=== PATIENT | male | born 1970 | race African-American/Black ===

== ENCOUNTER 2024-11-11 18:51 | Observation (INO) | payer OTHER, SELFPAY ==
--- NOTE | ~2024-11-11 | CT_ITS ---
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 CTA of the neck was performed with intravenous contrast. Automated exposure control and iterative reconstruction technique were employed. The dose-length product was 1 796.61 mGy-cm. Maximum intensity projection and volume rendered 3D-reconstructions were created by tino carmen technologist on a separate workstation. COMPARISON: CT 04/02/2019. FINDINGS: CT BRAIN: No acute large vessel infarct, intracranial hemorrhage, mass, or hydrocephalus. Partial opacification and aerated secretions in the right posterior ethmoid sinuses. CTA HEAD: No large vessel occlusion, aneurysm, high flow vascular malformation, nidus or extravasation. The rig ht intradural vertebral artery terminates in a cerebellar artery, a normal variant. Persistent origin of the right posterior cerebral artery, a normal variant. CTA NECK: Aortic arch and proximal great vessels: Normal arch anatomy. Atherosclerotic calcifications at the vi sualized aortic arch and proximal great vessels. Right common carotid, carotid bifurcation, and internal carotid artery: No plaque.There is 0% stenosi s of the proximal right internal carotid artery relative to normal distal artery lumen diameter (NASC ET criteria). Left common carotid, carotid bifurcation, and internal carotid artery: No plaque.There is 0% stenosis of the proximal left internal carotid artery relative to normal distal artery lumen diameter (NASCET criteria). Vertebral arteries: No significant plaque or stenosis. Left vertebral artery is dominant. Other findings: Degenerative changes in the cervical spine. IMPRESSION: No acute intracranial process. Minimal opacification and aerated secretions in the right posterior ethmoid cells, may reflect a comp onent of acute sinusitis in the appropriate clinical context. No large vessel intracranial occlusion, high-grade intracranial stenosis, or aneurysm. No carotid or vertebral artery occlusion, dissection, or significant stenosis. Reviewed, dictated and finalized at location K. IC AID ELIGIBILITY ASSISTANT IMPRESSION: No acute intracranial process. Minimal opacification and aerated secretions in the right posterior ethmoid alicja ls, may reflect a component of acute sinusitis in the appropriate clinical cont ext. No large vessel intracranial occlusion, high-grade intracranial stenosis, or an eurysm. No carotid or vertebral artery occlusion, dissection, or significant stenosis.
--- NOTE | ~2024-11-11 | XR_ITS ---
EXAMINATION: XR chest 1V portable Exam Date/Time: 11/11/2024 20:40 [place] [employer] HISTORY: pt c/o seeing red dots in his vision Comparison: 04/02/2019. RESULT: Lines, tubes, and devices: None. Lungs and pleura: Slight leftward rotation. No focal consolidation, pleural effusion, or pneumothora x. Cardiomediastinal silhouette: Stable. Other: No acute osseous or upper abdominal finding. IMPRESSION: No acute cardiopulmonary process. Reviewed, dictated and finalized at location K. TEE OF ESTATE
--- NOTE | ~2024-11-11 | MR_ITS ---
EXAMINATION: MR brain/brain stem wo/w con DATE: 11/12/2024 08:01 INDICATION: Vision changes superior. Superior quadrantanopia. TECHNIQUE: Magnetic resonance imaging (MRI) of the brain and brainstem was performed without and with 17 mL Multihance intravenous contrast. Sequences included sagittal and axial T1-weighted SE, axial d iffusion-weighted FS SE, axial 3D SWAN, axial T2-weighted FLAIR, and axial T2-weighted FSE. Postcontr ast axial and coronal T1-weighted SE was obtained. Apparent diffusion coefficient (ADC) maps were cre ated. COMPARISON: None. FINDINGS: There are no areas of restricted diffusion to suggest acute infarction. No intracranial hemorrhage or abnormal intracranial mass lesion. There are no intraparenchymal signal abnormalities seen on the ot her pulse sequences. The ventricles are symmetric and normal in size. There are no abnormal extra-axi al fluid collections. Flow voids are seen in the cerebral arteries on the T2-weighted sequences consi stent with their expected patency. Abnormal signal in the left lobe which on the flair signal has a V -shaped configuration converging on the optic disc suggesting retinal detachment. Mild mucosal thicke lisa in the bilateral ethmoid sinuses. There are no areas of abnormal enhancement on the post contras t images. IMPRESSION: 1. Normal brain. 2. Abnormal signal in the left lobe with configuration suggesting retinal detachment. Reviewed, dictated and finalized at location A. ROLLER ENGRAVER IMPRESSION: 1. Normal brain. 2. Abnormal signal in the left lobe with configuration suggesting retinal detac hment.
--- OUTSIDE RECORDS SUMMARY | 2024-11-11 18:53 | XMS_ITS | Continuity of Care Document ---
Author Organization [facility] Address [address] [place] [address] Rd [address] [place] [address] Phone Care Team Providers Care Pharmacy Salesperson Name Role Phone Davion PT,MPT,ATC, Zurdo Unavailable Unavai lable Procedures Procedure Date Free Assessment Advance Directives Directive Yes / No Effective Date File Name No Information Encounters Encounter Description Practice Location Reason(s) For Visit Diagnoses Date Provider Providers Copied on Encounter [facility], [address] [place], [place] [address], [place], [place], [id number], [place] tel:[phone] [place] No Information [address] [place]. Referring Provider: Physician Screen. Family History Family Member Type Diagnosis Age At Onset No Information Payers Payer name Insurance type Covered alliance party ID Authoriza tion(s) No Information Social History Type Description Quantity Date Captured Comments Sex Male Smoking Status No Information Chief Complaint And Reason For Visit No Information Reason For Referral Reason For Referral No Information History Of Present Illness Encounter Date Complaint History Of Prese nt Illness No Information Functional Status Date Functional Assessmen t No Information Instructions Date Instruction Additional Infor mation No Information Assessments Type Assessment Date No Information Patient Care Teams Name Effective Dates (start - stop) Status Members No Information
--- OUTSIDE RECORDS SUMMARY | 2024-11-11 18:53 | XMS_ITS | Patient Health Summary ---
Author Organization [facility] Address [address] [place] [address] Care Team Providers Care Chemistry Technologist Name Role Phone Unavailable Primary Care Provider Unavailabl e Note from [facility],non-owned Affiliates and Associated Physician Practices is amultiple site organization consisting of ambulatory clinics and hospital sitesin [place], [place], [place] and [place]. This disclosure is being madepursuant to the Care Everywhere program and may not contain all information available regarding this patient. Last updated 18.[facility] Allergies No known active allergies Medications * Be aware that medications may not be up to date on this document. Alwaysverify current medications with the patient. * METFORMIN HCL PO Take by mouth. Social History Tobacco Use Types Packs/Day Years Used Date Smoking Tobacco: Never Assessed Sex and Gender Information Value Date Recorded Sex Assigned at Not on file Gender Identity Not on file Sexual Orientation Not on file Procedures * IMAGING/RADIOLOGY/XRAY RESULTS ORDER(Performed 09/07/2011) Results * IMAGING/RADIOLOGY/XRAY RESULTS ORDER (09/07/2011) Anatomical Region Laterality Modality Other Kenneth Chacon MD IMAGING
--- OUTSIDE RECORDS SUMMARY | 2024-11-11 18:53 | XMS_ITS | Clinical Summary ---
Author Organization [facility] on Address [address] [address] Phone Care Team Providers Care Hat Brim Curler Name Role Phone Javier Hamilton, Kyung THOMPSON Primary Care Provi luiz Allergies No known active allergies Medications METFORMIN HCL (METFORMIN ORAL) Take by mouth. 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 Gender Identity Not on file Sexual Orientation Not on file Last Filed Vital Signs Vital Sign Reading Time Taken Comments Blood Pressure 151/92 01/04/2012 1:59 PM CDT Pulse 94 01/04/2012 1:59 PM CDT Temperature 36.8 C (98.3 F) 01/04/2012 1:59 PM CDT Respiratory Rate 20 01/04/2012 1:59 PM CDT Oxygen Saturation 99% 01/04/2012 1:59 PM CDT Inhaled Oxygen Concentration - - Weight 90.7 kg (200 lb) 01/04/2012 1:59 PM CDT Height 182.9 cm (6') 01/04/2012 1:59 PM CDT Body Mass Index 27.12 01/04/2012 1:59 PM CDT Plan of Treatment Health Maintenance Due Date Last Done Comments DTAP/TDAP/TD VACCINES (1 - Tdap) 1990 HEPATITIS B VACCINES (1 of 3 - 19+ 3-dose series) 1990 COLORECTAL SCREENING 2016 Colorectal Cancer Screening 2016 FIT-DNA Q 3 years 2016 FIT/FOBT Q 1 year 2016 Flex Sig/CT Colonography Q 5 years 2016 ZOSTER VACCINE (1 of 2) 2021 INFLUENZA VACCINE (#1) 2024 PNEUMOCOCCAL VACCINE 0-64 YEARS Aged Out No longer eligible based on patient's age to complete this topic Insurance Care Teams Hat Brim Curler Relationship Specialty Start Date End Date Kyung Herrera Sr., DO PCP - General Family Practice 01/04/12
--- OUTSIDE RECORDS SUMMARY | 2024-11-11 18:53 | XMS_ITS | Clinical Summary ---
Author Organization [facility] Address [address] [place] [id number] Care Team Providers Care Senior Net Software Developer Name Role Phone Jane Corona DO Primary Care Provider + Silas Vazquez MD Unavailable Fernandez Moody MD Unavailable [phone] Allergies No known active allergies Medications metFORMIN (GLUCOPHAGE) 1000 MG tablet Take 1 tablet (1,000 mg total) by mouth 2 (two) times daily with meals. Active atorvastatin (LIPITOR) 80 MG tablet Take 1 tablet (80 mg total) by mouth nightly at bedtime. 30 tablet 05/15/2024 Active Active Problems Problem Noted Date Diagnosed Date Slurred speech 05/13/2024 Social History Tobacco Use Types Packs/Day Years Used Date Smoking Tobacco: Never Smokeless Tobacco: Never Tobacco Cessation:Counseling Given: Not Answered [facility] Utilities Answer Date Recorded In the past 12 months has [employer], or water [employer] threatened to shut off services in your home? Yes 05/13/2024 Humiliation, Afraid, Rape, and Kick questionnair e Answer Date Recorded Within the last year, have y ou been afraid of your partner or ex-partner? No 05/13/2024 Within the last year, have y ou been humiliated or emotionally abused in other ways by your partner or ex-partner? No Within the last year, have y ou been kicked, hit, slapped, or otherwise physically hurt by your partner or ex-partner? No 05/13/2024 Within the last year, have y ou been raped or forced to have any kind of sexual activity by your partner or ex-partner? No 05/13/2024 Overall Financial Resource Strain (CARDIA) Answe r Date Recorded How hard is it for you to pa y for the very basics like food, housing, medical care, and heating? Not very hard 05/13/2024 Hunger Vital Sign Answer Date Recorded Within the past 12 months, y ou worried that your food would run out before you got the money to buy more. Never true 05/13/20 24 Within the past 12 months, t he food you bought just didn't last and you didn't have money to get more. Never true 05/13/2024 PRAPARE - Transportation Answer Date Re corded In the past 12 months, has l ack of transportation kept you from medical appointments or from getting medications? No 05/04 In the past 12 months, has l ack of transportation kept you from meetings, work, or from getting things needed for daily living? No 05/13/2024 Housing Stability Vital Sign Answer Steve e Recorded In the last 12 months, was t here a time when you were not able to pay the mortgage or rent on time? No 05/13/2024 In the past 12 months, how m any times have you moved where you were living? 0 05/13/2024 At any time in the past 12 m [facility], were you homeless or living in a half-way (including now)? No 05/13/2024 Sex and Gender Information Value Date Recorded Sex Assigned at Not on file Legal Sex Male 3:30 PM CDT Gender Identity Not on file Sexual Orientation Not on file Last Filed Vital Signs Vital Sign Reading Time Taken Comments Blood Pressure 169/98 05/15/2024 1:18 PM CDT Pulse 63 05/15/2024 1:18 PM CDT Temperature 36.8 C (98.2 F) 05/15/2024 1:18 PM CDT Respiratory Rate 16 05/15/2024 1:18 PM CDT Oxygen Saturation 100% 05/15/2024 1:18 PM CDT Inhaled Oxygen Concentration - - Weight 89.4 kg (197 lb 1.5 oz) 05/13/2024 4:20 P M CDT Height 177.8 cm (5' 10 ) 05/13/2024 4:20 PM CDT Body Mass Index 28.28 05/13/2024 4:20 PM CDT Plan of Treatment Health Maintenance Due Date Last Done Comments Colorectal Cancer Screening Colonoscopy (10 Years) 1971 Annual Physical 1974 Hepatitis C 1989 DTaP, Tdap and Td Vaccines ( 1 - Tdap) 1990 Hepatitis B Vaccines (1 of 3 - 19+ 3-dose series) 1990 Zoster Vaccines (1 of 2) 2021 COVID-19 Vaccine (4 - 2023-2 5 season) 2024 08/22/2022, 09/24/2021, 02/04/2021 Influenza Adult (#1) 2024 08/01/2022 Meningococcal B Vaccine Aged Out No l onger eligible based on patient's age to complete this topic Meningococcal Vaccine Aged Out No leopoldo alex eligible based on patient's age to complete this topic Pneumococcal Vaccine: Pediatrics (0 to 5 Years) and At-Risk Patients (6 to 64 Years) Aged Out No longer eligible b ased on patient's age to complete this topic RSV Immunizations Under 20 Months Aged Out No longer eligible b ased on patient's age to complete this topic Insurance GENERIC - COMMERCIAL Advance Directives * Full Code (Latest Code Status on File) Date Activated Date Inactivated Comments 05/13/2024 5:59 PM 05/15/2024 3:59 PM Care Teams Senior Net Software Developer Relationship Specialty [place] [address] [place] [address] PCP - General FAMILY PRACTICE 05/14/24 Silas Vazquez MD [facility] [address] [place] [address] Referring Physician VASCULAR SURGERY 05/15/24 05/15/25 Fernandez Moody MD [address] [facility] [address] [place] [address] Neuro-Ophthalmology 05/15/24 05/15/25
--- OUTSIDE RECORDS SUMMARY | 2024-11-11 18:53 | XMS_ITS | Continuity of Care Document ---
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 Name Role Phone Cj THOMPSON Jlwai Unavailable Unavailable Allergies, Adverse Reactions, Alerts Substance Reaction Status Criticality No Known Allergies Active No Inform ation Medications Medication Instructions Dosage Effective Dates (start - stop) Status Comments atorvastatin 80 mg tablet take 1 tablet by oral route every day 80 MG - Active amlodipine 5 mg tablet take 1 tablet by oral route every day 5 MG - Active clopidogrel 75 mg tablet take 1 tablet by oral route every day 75 MG - Active Januvia 25 mg tablet take 1 tablet by oral route every day 25 MG - Active METFORMIN HCL 1,000 MG TABLET TAKE 1 TABLET BY MOUTH EVERY DAY WITH MORNING AND EVENING MEAL - Active Farxiga 10 mg tablet take 1 tablet by oral route every day in the morning 10 MG - Active glipizide 10 mg tablet TAKE 1 TABLET BY MOUTH EVERY DAY BEFORE A MEAL - Active amlodipine 5 mg tablet take 1 tablet by oral route every day 5 MG - No Longer Active Procedures Procedure Date DSCHRG MED/CURRENT MED MERGE OFFICE [id number] BASIC METABOLIC PANEL(BMP) HEMOGLOBIN A1C HGA1C, GLYCO LDL-CHOLESTEROL, DIRECT ROUTINE VENIPUNCTURE OFFICE [id number] GENERAL HEALTH PANEL HEMOGLOBIN A1C HGA1C, GLYCO LIPID PANEL MICROALBUMIN, QN (URINE) CREATININE, (U-R) PSA, TOTAL ROUTINE VENIPUNCTURE PREVENTATIVE-EST: 40-64 BASIC METABOLIC PANEL(BMP) HEMOGLOBIN A1C HGA1C, GLYCO LDL-CHOLESTEROL, DIRECT ROUTINE VENIPUNCTURE OFFICE [id number] GENERAL HEALTH PANEL HEMOGLOBIN A1C HGA1C, GLYCO LIPID PANEL MICROALBUMIN, QN (URINE) CREATININE, (U-R) PSA, TOTAL ROUTINE VENIPUNCTURE PREVENTATIVE-EST: 40-64 OFFICE [id number] Pt inelig neg scrn depres OFFICE [id number] OFFICE [id number]-IRG-[id number] BODY MASS INDEX DOCD SYST BP >= 140 MM HG6 IT DIAST BP 80-89 MM HG Pt inelig neg scrn depres OFFICE [id number] BODY MASS INDEX DOCD SYST BP >= 140 MM HG6 IT DIAST BP >= 90 MM HG Advance Directives Directive Yes / No Effective Date File Name Life Support Not Answered N/A N/A Intubation Not Answered N/A N/A Antibiotics Not Answered N/A N/A IV Fluid Support Not Answered N/A N/A Tube Feed Not Answered N/A N/A Other Directive N/A N/A WARNING:The information contained in this section is historical and is provided for information only and does not constitute a legal document or any assurance that the information is still accurate. Please verify the information with the paulino of the legal document before using it for clinical purposes. Encounters Encounter Description Practice Location Reason(s) For Visit Diagnoses Date Provider Providers Copied on Encounter [facility], [address], [place], [place], [address] , tel: [phone] [facility] No Information 4 Cj Lara. [id number], [place], [place], [address] , . tel: [phone] [facility], [address], [place], [place], [address] , tel: [phone] [facility] Follow-Up (chief complaint) Body mass index [BMI] 26.0-26.9, adultEssential (primary) hypertensionHospi inna discharge follow-upType 2 diabetes mellitus with hyperglycemia, without long-term current use of insulin 4 Cj Lara. [address], [place], [place], [address] , [place]. tel: [phone] Referring Provider: Danny [address], [place], [address] . tel:[phone] [facility], [address], [place], [place], [address] , tel: [phone] [facility] No Information 4 Cj Lara. [address], [place], [place], [address] , [place]. tel: [phone] OFFICE JVXWY-OQS-NR [facility], [address], [place], [place], [address] , tel: [phone] [facility] DIabetes (chief complaint)ch ronic helath conditions (chief complaint) Body mass index [BMI] 27.0-27.9, adultType 2 diabetes mellitus with hyperglycemia, without long-term current use of insulinMixed hyperlipidemiaEle vated blood pressure reading without diagnosis of hypertension 4 Cj Lara. [address], [place], [place], [address] , [place]. tel: [phone] Referring Provider: Danny [address], [place], [address] . tel:[phone] [facility], [address], [place], [place], [address] , tel: [phone] [facility] No Information 4 Cj Lara. [address], [place], [place], [address] , [place]. tel: [phone] [facility], [address], [place], [place], [address] , [place] tel: [phone] [facility] Mild anemia 4 Cj Lara. [address], [place], [place], [address] , [place]. tel: [phone] PREVENTATIVE -EST: 40-64 [facility], [address], [place], [place], [address] , tel: [phone] [facility] preventive exam (chief complaint)ye rosangela checkup (chief complaint) Body mass index [BMI] 26.0-26.9, adultMixed hyperlipidemiaTyp e 2 diabetes mellitus with hyperglycemia, without long-term current use of insulinProstate cancer screeningEncounte r for general adult medical examination without abnormal findings 4 Cj Lara. [address], [place], [place], [address] , . tel: [phone] Referring Provider: Danny [address], [place], [address] . tel:[phone] [facility], [address], [place], [place], [address] , [place] tel: [phone] [facility] No Information 4 Cj Lara. [address], [place], [place], [address] , [place]. tel: [phone] OFFICE RGGQN-SJE-FO PANDED [facility], [address], [place], [address] , [place] tel: [phone] [facility] Diabetes (chief complaint) Body mass index [BMI] 26.0-26.9, adultType 2 diabetes mellitus with hyperglycemia, without long-term current use of insulinMixed hyperlipidemia 3 Cj Lara. [address], [place], [place], [address] , [place]. tel: [phone] Referring Provider: Danny [address], [place], [address] . tel:[phone] PREVENTATIVE -EST: 40-64 [facility], [address], [place], [place], [address] , [place] tel: [phone] [facility] preventive exam (chief complaint) Body mass index [BMI] 26.0-26.9, adultEncounter for general adult medical examination without abnormal findingsType 2 diabetes mellitus with hyperglycemia, without long-term current use of insulinProstate cancer screening 2 Cj Lara. [address], [place], [place], [address] , [place]. tel: [phone] Referring Provider: Danny [address], [place], [address] . tel:[phone] OFFICE HPKAI[facility]FMF[facility]XV [facility], [address], [place], [place], [address] , [place] tel: [phone] [facility] Follow Up of diabetes (chief complaint) Body mass index [BMI] 23.0-23.9, adultType 2 diabetes mellitus with hyperglycemia, without long-term current use of insulinElevated blood pressure reading without diagnosis of hypertension 2 Cj Lara. [address], [place], [place], [address] , [place]. tel:[phone] Referring Provider: Danny [address], [place], [address] . tel:[phone] OFFICE SIWLQ-MJK-OB [facility], [address], [place], [place], [address] , tel: [phone] [facility] No Information [address] C[address], [place], [place], [address] , . tel: [phone] Referring Provider: Danny [address], [place], [address] . tel:[phone] [facility] [address], [place], [place], [address] , tel: [phone] [facility] Chronic Conditions (chief complaint)Er ectile dysfunction (chief complaint) Type 2 diabetes mellitus with hyperglycemia, without long-term current use of insulinElevated blood pressure reading without diagnosis of hypertensionErect ile dysfunction associated with type 2 diabetes mellitusErectile dysfunction due to diseases classified elsewhere 1 Cj Lara. [address], [place], [place], [address] , . tel: [phone] Referring Provider: Danny [address], [place], [address] . tel:[phone] [facility], [address], [place], [place], [address] , tel: [phone] [facility] Type 2 diabetes mellitus with hyperglycemia, without long-term current use of insulinElevated blood pressure reading without diagnosis of hypertension 1 Cj Lara. [address], [place], [place], [address] , . tel:[phone] Referring Provider: Danny [address], [place], [address] . tel:[phone] Family History Family Member Type Diagnosis Age At Onset Mother Problem Diabetes mellitus Sister Problem Diabetes mellitus Immunizations Vaccine Date Status Comments Moderna COVID19 Vaccine, 0.5 mL per dose, 2 doses, administered 28 days apart administered Source: Other Provid er Payers Payer name Insurance type Covered republican ID Authoriza tion(s) [facility] CI [id number] Social History Type Description Quantity Date Captured Comments Alcohol Use Details Unknown Caffeine Use Details Unknown Tobacco Use Status No Information Smoking Status No Information Sex Male Sexual Orientation Choose not to disclose Gender Identity Male Chief Complaint And Reason For Visit No Information Reason For Referral Reason For Referral No Information Plan Of Treatment Date Type Action Status Goal Dietary manageme nt education, guidance, and counseling completed Goal Dietary manageme nt education, guidance, and counseling completed Goal Dietary manageme nt education, guidance, and counseling completed Goal Dietary manageme nt education, guidance, and counseling completed Goal Dietary manageme nt education, guidance, and counseling completed Goal Dietary manageme nt education, guidance, and counseling completed Referral Referred To: [address], [id number] Ordered: COLONOSCOPY, Flexible, Proximal To Splenic, Diagnostic, Wor W/O Collection Of Sp ordered Future Order: Lab Order Iron ([id number]), Sent on: Sent Future Order: Lab Order Vitamin B12 ([id number]), Sent on: Sent History Of Present Illness Encounter Date Complaint History Of Prese nt Illness Hospital Follow-Up The patient w as seen today for a hospital follow-up visit. Details regarding this most recent admission include: Presented to the hospital due to elevated blood pressure. He reported chest pain and slurred speech. He had a CT of brain which was normal. He had carotid doppler which revealed bilateral mild carotid stenosis. He was discharged from hospital on amlodipine for blood pressure and clopidogrel for carotid stenosis. DIabetes chronic helath conditions The vandana cook is a 53-year-old male who presents for checkup of his chronic health conditions.The patient's blood pressure was slightly elevated during today's visit, with a reading of 146/88 mmHg. Despite this, his usual reading is 115/80. Over the past 2 to 3 years, his blood pressure readings have been 130/87, 112/70, and 109/73. 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 He denies any chest pain, abdominal pain, or leg pain.The patient's HbA1c levels have been consistently high, ranging from 13.4 to 12.9. His current medication regimen includes metformin and glipizide. He has been walking on the treadmill and doing work out to keep his weight stable. He denies any chest pain or abdominal pain.Laboratory [id number] was 12.9. preventive exam yearly checkup Patient verbally consents to the [employer] recording experience.HISTORY OF PRESENT ILLNESS:Last Gallo is a 53-year-old male who presents today for a yearly checkup.The patient is doing well overall.The patient is adhering to a fasting regimen. He has experienced weight loss, with his weight dropping from 215 pounds to 183 pounds. He has increased his vegetable intake and limited his consumption of red meat to 1 serving of steak. He has substituted regular diaz with turkey diaz and incorporated more soups into his diet. He occasionally consumes pork sausage. He is also avoiding soda consumption.The patient has been engaging in cold therapies, cleanses, and fasting. He reports occasional flatulence, which has become more potent. He is open to providing a colon sample to see and is willing to undergo a colonoscopy if necessary.The patient reports an inability to tolerate the previously prescribed medication, Rybelsus. His A1c decreased from 13.4% to 11.3% as of 03/2023.The patient takes red yeast rice tablets and fish oil.The patient's back is doing well right now.The patient has been managing his leg condition through regular moisturization to prevent dry skin or eczema. He denies any symptoms of pruritus or discomfort. No complaints of itching or pain.The patient has a lesion on his left foot due to scalding from hot water, resulting in partial skin sloughing. He reports partial healing, but the lesion has not completely resolved. 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 Diabetes preventive exam Men's preventive visit. Patient is on a high calorie diet. The patient has no weight gain/loss. Relevant history is negative for tobacco use, passive smoke exposure, passive vaping exposure, alcohol use. Follow Up of diabetes Follow Up of diabetes (comments) The course of the disease has been fair controlled. Patient reports taking metformin and glipizide. He is not following with endocrinology.Current medication(s) reviewed.Patient understands diagnosisBlood sugars are not being checked at home.Diabetic diet compliance: noExercise compliance: noNo change in vision. No sores on feet. No paresthesias of LE. Denies chest pain, palpitations, orthopnea, pnd, pedal edema, shortness of breath. No polyuria or polydipsia. Erectile dysfunction Onset was g radual. The problem is with no change. The patient has difficulty attaining erection. The patient has difficulty maintaining erection. The grade of erection is 1. Adequacy of erection includes 20% tumescence and 0% rigidity. Identified risk factors include diabetes. PSA was not performed The patient has a significant other. The patient's quality of relationship is good. The partner is interested in sexual activity. The patient is not under unusual stress. The patient's libido is normal. Associated symptoms include difficulty ejaculating with intercourse, difficulty ejaculating with masturbation and inability to function well with masturbation. Pertinent negatives include AM erections, nocturnal erections and premature ejaculation. Chronic Conditions Chronic Conditions *See Chronic Conditions HPI Functional Status Date Functional Assessmen t No Information Instructions Date Instruction Additional Infor mation Medication reconcili ation completed with Yeison. Related to Hospital discharge follow-up Fair control. Goal h emoglobin A1C less than 7.0. Continue to monitor carbohydrates. Follow up in 3 months. counseled on goal A1c and risks of uncontrolled DM. Discussed monitoring or screening for complications including A1c every 6 months (if controlled) or every 3 months (if not controlled), foot check annually, kidney check annually (CMP and micro), eye exam annually. Counseled on risk for cardiovascular disease and more strict goals for blood pressure and LDL. Counseled on need for continued compliance with medications as well as aggressvie lifestyle changes- healthy diet (specifically avoiding sugars and sweets and cutting down on carbs), regular exercise including muscle building exercise, and weight management. Discussed home glucose monitoring if needed, as well as nutrition and diabetes management referrals if needed. Related to Type 2 diabetes mellitus with hyperglycemia, without long-term current use of insulin New diagnosis. To co ntinue with amlodipine. Reviewed adverse side effects of medication. To keep log of blood pressure for 1-2 weeks. Related to Essential (primary) hypertension Dietary management e ducation, guidance, and counseling Related to Body mass index (BMI) 26.0-26.9, adult Giving encouragement to exercise Related to Body mass index (BMI) 26.0-26.9, adult We advised him to ma davidain a log for his daily blood pressure at home.This note has been created using [employer] experience and was completed in the EHR by Joel Valented by Sandra Garcia Related to Elevated blood pressure reading without diagnosis of hypertension Stable. Goal LDL les s than 70. To limit red meat. Increase fruits and vegetables. Continue with diet and exercise as tolerated. Related to Mixed hyperlipidemia Elevated. Continue w ith Januvia and glipizide as tolerated. Goal hemoglobin A1C less than 7.0. Continue to monitor carbohydrates. Follow up in 3 months. counseled on goal A1c and risks of uncontrolled DM. Discussed monitoring or screening for complications including A1c every 6 months (if controlled) or every 3 months (if not controlled), foot check annually, kidney check annually (CMP and micro), eye exam annually. Counseled on risk for cardiovascular disease and more strict goals for blood pressure and LDL. Counseled on need for continued compliance with medications as well as aggressive lifestyle changes- healthy diet (specifically avoiding sugars and sweets and cutting down on carbs), regular exercise including muscle building exercise, and weight management. Discussed home glucose monitoring if needed, as well as nutrition and diabetes management referrals if needed.A comprehensive blood workup will be conducted. Related to Type 2 diabetes mellitus with hyperglycemia, without long-term current use of insulin Dietary management e ducation, guidance, and counseling Related to Body mass index (BMI) 27.0-27.9, adult Giving encouragement to exercise Related to Body mass index (BMI) 27.0-27.9, adult Hypertension education Related t o Body mass index (BMI) 27.0-27.9, adult Stable. Goal LDL les s than 70. To limit red meat. Increase fruits and vegetables. Continue with diet and exercise as tolerated. Related to Mixed hyperlipidemia Stable. Continue wit h Januvia and glipizide as tolerated. Goal hemoglobin A1C less than 7.0. Continue to monitor carbohydrates. Follow up in 3 months. counseled on goal A1c and risks of uncontrolled DM. Discussed monitoring or screening for complications including A1c every 6 months (if controlled) or every 3 months (if not controlled), foot check annually, kidney check annually (CMP and micro), eye exam annually. Counseled on risk for cardiovascular disease and more strict goals for blood pressure and LDL. Counseled on need for continued compliance with medications as well as aggressvie lifestyle changes- healthy diet (specifically avoiding sugars and sweets and cutting down on carbs), regular exercise including muscle building exercise, and weight management. Discussed home glucose monitoring if needed, as well as nutrition and diabetes management referrals if needed. Related to Type 2 diabetes mellitus with hyperglycemia, without long-term current use of insulin We will obtain fasti ng labs today. Have regular screening exams as age/gender appropriate, reduce exposure to stress, improve dietary compliance, continue current medications, continue current healthy lifestyle patterns and return for routine annual checkups Related to Encounter for general adult medical examination without abnormal findings Giving encouragement to exercise Related to Body mass index (BMI) 26.0-26.9, adult Dietary management e ducation, guidance, and counseling Related to Body mass index (BMI) 26.0-26.9, adult Stable. Goal LDL les s than 70. To limit red meat. Increase fruits and vegetables. Continue with diet and exercise as tolerated. Related to Mixed hyperlipidemia Uncontrolled. Contin ue with current treatment plan and wait for lab results. Goal hemoglobin A1C less than 7.0. Continue to monitor carbohydrates. Follow up in 3 months. counseled on goal A1c and risks of uncontrolled DM. Discussed monitoring or screening for complications including A1c every 6 months (if controlled) or every 3 months (if not controlled), foot check annually, kidney check annually (CMP and micro), eye exam annually. Counseled on risk for cardiovascular disease and more strict goals for blood pressure and LDL. Counseled on need for continued compliance with medications as well as aggressvie lifestyle changes- healthy diet (specifically avoiding sugars and sweets and cutting down on carbs), regular exercise including muscle building exercise, and weight management. Discussed home glucose monitoring if needed, as well as nutrition and diabetes management referrals if needed. Related to Type 2 diabetes mellitus with hyperglycemia, without long-term current use of insulin Work on diet and exe rcise. This note has been created using [employer] experience and was completed in the EHR by Ashley Murphy. Related to Body mass index [BMI] 26.0-26.9, adult Giving encouragement to exercise Related to Body mass index (BMI) 26.0-26.9, adult Dietary management e ducation, guidance, and counseling Related to Body mass index (BMI) 26.0-26.9, adult PSA ordered. Related to Prost ate cancer screening He is up-to-date on preventive measures. He is going to get non-fasting labs completed today. He will follow-up in 6 months if the A1c is well controlled, 3 months with the A1c is not well controlled. Related to Encounter for general adult medical examination without abnormal findings Fair control. Michelle amador on metformin and glipizide. Due to the diarrhea, may have to adjust the metformin, but we would like to see what A1c is first. Discussed importance of low carbohydrate diet and continue with daily exercise. It is important to have yearly eye exams, to check his feet on a regular basis.This note has been created using [employer] experience and was completed in the EHR by Soraya Diaz. Related to Type 2 diabetes mellitus with hyperglycemia, without long-term current use of insulin Giving encouragement to exercise Related to Body mass index (BMI) 26.0-26.9, adult Dietary management e ducation, guidance, and counseling Related to Body mass index (BMI) 26.0-26.9, adult Elevated. To keep lo g of blood pressure. Goal blood pressure less than 120/80. To limit alcohol, caffeine, and salt consumption. To follow up if symptoms are not controlled. Related to Elevated blood pressure reading without diagnosis of hypertension Stable. Continue wit h metformin and glipizide as tolerated. Goal hemoglobin A1C less than 7.0. Continue to monitor carbohydrates. Follow up in 3 months. counseled on goal A1c and risks of uncontrolled DM. Discussed monitoring or screening for complications including A1c every 6 months (if controlled) or every 3 months (if not controlled), foot check annually, kidney check annually (CMP and micro), eye exam annually. Counseled on risk for cardiovascular disease and more strict goals for blood pressure and LDL. Counseled on need for continued compliance with medications as well as aggressvie lifestyle changes- healthy diet (specifically avoiding sugars and sweets and cutting down on carbs), regular exercise including muscle building exercise, and weight management. Discussed home glucose monitoring if needed, as well as nutrition and diabetes management referrals if needed.Status: Able to self-manage condition. Goals: Your goal is to monitor your diabetes. Barriers: No barriers to goal achievement have been identified. Related to Type 2 diabetes mellitus with hyperglycemia, without long-term current use of insulin Dietary management e ducation, guidance, and counseling Related to Body mass index (BMI) 23.0-23.9, adult Hypertension education Related t o Body mass index (BMI) 23.0-23.9, adult Giving encouragement to exercise Related to Body mass index (BMI) 23.0-23.9, adult To check testosteron e and [facility] at [facility]. Further recommendations pending lab results. Related to Erectile dysfunction associated with type 2 diabetes mellitus See above. Related to Erect ile dysfunction due to diseases classified elsewhere Elevated. To keep lo g of blood pressure for 2 weeks. Goal blood pressure less than 130/90. To limit alcohol, caffeine, and salt consumption. To follow up if symptoms are not controlled. Related to Elevated blood pressure reading without diagnosis of hypertension Elevated. To continu e with metformin and glypizide. Goal hemoglobin A1C less than 7.0. Continue to monitor carbohydrates. Follow up in 3 months. counseled on goal A1c and risks of uncontrolled DM. Discussed monitoring or screening for complications including A1c every 6 months (if controlled) or every 3 months (if not controlled), foot check annually, kidney check annually (CMP and micro), eye exam annually. Counseled on risk for cardiovascular disease and more strict goals for blood pressure and LDL. Counseled on need for continued compliance with medications as well as aggressvie lifestyle changes- healthy diet (specifically avoiding sugars and sweets and cutting down on carbs), regular exercise including muscle building exercise, and weight management. Discussed home glucose monitoring if needed, as well as nutrition and diabetes management referrals if needed.Status: Able to self-manage condition. Goals: Your goal is to be active. Barriers: No barriers to goal achievement have been identified. Related to Type 2 diabetes mellitus with hyperglycemia, without long-term current use of insulin To keep log of blood pressure for 1-2 weeks. Goal blood pressure less than 120/80. To limit alcohol, caffeine, and salt consumption. To follow up if symptoms are not controlled. Related to Elevated blood pressure reading without diagnosis of hypertension Elevated. To resume metformin and glypizide. Goal hemoglobin A1C less than 7.0. Continue to monitor carbohydrates. Follow up in 3 months. counseled on goal A1c and risks of uncontrolled DM. Discussed monitoring or screening for complications including A1c every 6 months (if controlled) or every 3 months (if not controlled), foot check annually, kidney check annually (CMP and micro), eye exam annually. Counseled on risk for cardiovascular disease and more strict goals for blood pressure and LDL. Counseled on need for continued compliance with medications as well as aggressvie lifestyle changes- healthy diet (specifically avoiding sugars and sweets and cutting down on carbs), regular exercise including muscle building exercise, and weight management. Discussed home glucose monitoring if needed, as well as nutrition and diabetes management referrals if needed.Status: Able to self-manage condition. Goals: Your goal is to be active. Barriers: No barriers to goal achievement have been identified. Related to Type 2 diabetes mellitus with hyperglycemia, without long-term current use of insulin Assessments Type Assessment Date No Information Patient Care Teams Name Effective Dates (start - stop) Status Members No Information
--- OUTSIDE RECORDS SUMMARY | 2024-11-11 18:53 | XMS_ITS | Referral Summary ---
Author Organization [facility] Address [address] [place] [address] Care Team Providers Care Special Procedure Tech Name Role Phone Unavailable Primary Care Provider Unavailabl e Source Comments [facility],non-owned Affiliates and Associated Physician Practices is amultiple site organization consisting of ambulatory clinics and hospital sitesin [place], [place], [place] and [place]. This disclosure is being madepursuant to the Care Everywhere program and may not contain all information available regarding this patient. Last updated 18.[employer] Allergies No known active allergies Medications * Be aware that medications may not be up to date on this document. Alwaysverify current medications with the patient. Medication Sig Dispensed Refills Start Date End Date Status METFORMIN HCL PO Take by mouth. Acti ve Social History Tobacco Use Types Packs/Day Years Used Date Smoking Tobacco: Never Assessed Sex and Gender Information Value Date Recorded Sex Assigned at Not on file Gender Identity Not on file Sexual Orientation Not on file Plan of Treatment Not on file
--- OUTSIDE RECORDS SUMMARY | 2024-11-11 18:53 | XMS_ITS | Clinical Summary ---
Author Organization [facility] [employer] Address [address] [place] [address] Care Team Providers Care Shipping And Receiving Specialist Name Role Phone Unavailable Primary Care Provider Unavailabl e Source Comments [facility] [employer],non-owned Affiliates and Associated Physician Practices is amultiple site organization consisting of ambulatory clinics and hospital sitesin [place] and [place]. This disclosure is being madepursuant to the Care Everywhere program and may not contain all information available regarding this patient. Last updated 18.[employer] Allergies No known active allergies Medications * [...] Orientation Not on file Plan of Treatment Health Maintenance Due Date Last Done Comments COLOGUARD (AGES 45-75) - COL ON CA SCREENING 1971 COLON MONITORING 1971 COLONOSCOPY - COLON CA SCREENING 1971 CT COLONOGRAPHY - COLON CA SCREENING 1971 Colorectal Cancer Screening 1971 FIT - COLON CA SCREENING 1971 FLEX SIG - COLON CA SCREENING 1971 LIPID TESTING 1971 HIV SCREENING 1986 HEPATITIS C SCREENING 07/19/1989 DTAP/TDAP/TD VACCINES (1 - Tdap) 1990 HEPATITIS B VACCINE (1 of 3 - 19+ 3-dose series) 1990 PNEUMOCOCCAL VACCINE 50+ (1 of 1 - PCV) 2021 ZOSTER VACCINE (1 of 2) 2021 COVID-19 VACCINE (1 - 2023-2 5 season) 2024 INFLUENZA VACCINE (#1) 2024 DEPRESSION SCREENING 10/04/2024 HIB VACCINE Aged Out No longer eligi ble based on patient's age to complete this topic HPV VACCINE Aged Out No longer eligi ble based on patient's age to complete this topic MENINGOCOCCAL (Group B) VACCINE Aged Out No longer eligible based on patient's age to complete this topic MENINGOCOCCAL VACCINE Aged Out No leopoldo alex eligible based on patient's age to complete this topic PNEUMOCOCCAL VACCINE Aged Out No long er eligible based on patient's age to complete this topic
[2024-11-11 19:08] VITALS: BP 168/11; PULSE 80; RESP 20; TEMP 36.4; O2SAT 100
--- NOTE | 2024-11-11 19:33 | ED_ITS ---
HPI - Eye Problem General Chief complaint: Eye Problems Stated complaint: blurry vision Time Seen by Provider: 11/11/24 19:18 Source: patient Mode of arrival: ambulatory Limitations: no limitations History of Present Illness HPI Narrative: Patient presents with eye problems. He sees an area of redness in the left upper quadrant of his right eye but only when both eyes are open. This started approximately 2 hours prior to arrival. Patient states cloudy vision in his left eye for all while. He purchased some 1.5 corrective readers but otherwise was not seen pet care technician or survey and mapping technician. He denies any flashes or floaters. No mosque pain or diplopia. He denies any jaw claudication. The area of redness is not a central vision defect. He has no associated headache and no history of migraines. No curtain defect. States he can see some light his left eye but cannot see me. He denies any pain. Related Data Home Medications ?Medication ?Instructions ?Recorded ?Confirmed ?Last Taken ?Type amlodipine 5 mg tablet 5 mg PO DAILY@0800 11/12/24 11/12/24 11/11/24 History atorvastatin 80 mg tablet 80 mg PO QAM 11/12/24 11/12/24 11/11/24 History chlorthalidone 25 mg tablet 25 mg PO DAILY 11/12/24 11/12/24 11/11/24 History glipizide 10 mg tablet 10 mg PO QAM 11/12/24 11/12/24 Unknown History metformin 1,000 mg tablet 1,000 mg PO QAM 11/12/24 11/12/24 Unknown History Allergies Allergy/AdvReac Type Severity Reaction Status Date / Time No Known Allergies Allergy Mild Verified 11/12/24 01:18 [facility] Family History Family History Sibling No problems noted. Other Unknown family medical history Social History Social History (Updated 11/11/24 @ 20:51 by Usha Bello MD) Smoking status: Never smoker Do You Feel Safe in your Home?: Yes Lack of Transportation: No Lack of Food: Never True Current Housing: I Have Housing Concerned About Future Housing: No Difficulty Paying Gas/Electric Bills: No Difficulty Paying for Meds: No Currently Unemployed: No Education: Associate Degree Difficulty w/ Childcare or Family Care: No Occupation/Education: occupation Additional occupation/education comments: Works as a motorcycle mechanic Spiritual care concerns: No Exam 2 Narrative: GENERAL: Well-appearing, well-nourished, and in no acute distress. HEAD: Normocephalic, atraumatic. EYES: Visual acuity: Left eye 0 - can not see vision screening chart or me at bedside or hands waving but can perceive light. R eye 20/40. No peripheral field perception in left eye. Peripheral contreras normal in R eye including at superior temporal and nasal aspects. Pupils equal. Extraocular motility intact horizontal/vertical and at corners. Mild misalignment. Intra-ocular pressure = 24 L, 21 R with tonopen. External examination : Non injected, non icteric. Arcuate senilis right eye. Fluroscein - normal uptake though there is a white deficit just lateral to (temporal aspect) bilateral irises. Slit-lamp examination - No abrasions/ulcerations. No eugenio pterygium. Funduscopic examination: Attempted but unable to perform. ENT: Nares clear, no rhinorrhea or epistaxis. NECK: Supple. CHEST: Speaking in full sentences. No respiratory distress. HEART: Regular rate and rhythm. . ABDOMEN: Soft, nondistended. EXTREMITIES: Normal range of motion. No lower extremity edema. Moves all extremities x4 year SKIN: Warm, dry, no rash. NEURO: No focal deficits. Alert and oriented x3. Speaks clearly without aphasia or dysarthria. Sensation intact throughout. No abnormal movements appreciated. PSYCH: Normal mood and affect. Course Vital Signs Vital signs: Vital Signs Temperature 97.6 F 11/11/24 19:08 Pulse Rate 80 11/11/24 19:08 Respiratory Rate 20 11/11/24 19:08 Blood Pressure 168/11 H 11/11/24 19:08 Pulse Oximetry 100 11/11/24 19:08 Temperature 97.6 F 11/11/24 19:08 Pulse Rate 82 11/12/24 04:00 Respiratory Rate 20 11/12/24 03:17 Blood Pressure 154/94 H 11/12/24 03:10 Pulse Oximetry 100 11/12/24 03:17 Oxygen Delivery Room Air 11/12/24 08:00 MDM - Eye Problem MDM Narrative Medical decision making narrative: Patient presents with eye problems. He has been having cloudy vision in his left eye for while and today experienced acute onset right eye visualization of a red defect in the upper left corner of his right eye that is appreciable only when both eyes are open. No diplopia, temporal pain, flashes, floaters, headache. This is painless. In the emergency department he is afebrile with vital signs notable for hypertension. Medications that patient has filled in the past 6 months include amlodipine, atorvastatin, chlorthalidone, and clopidogrel. It appears that patient previously had filled prescriptions for glipizide and metformin early in 2023 but not since. He does admit he has missed some doses of medications. NIHSS = 1 (for absent peripheral contreras in L eye); even though patient has reported Red spot/defect in superior aspect of R eye, peripheral visual contreras are present in this eye when assessed independently. Visual Acuity - Left eye = 0 on eye chart - can't see hand waving but can see light, Right eye 20/40 IOP = 24 Left eye, R eye 21. Right eye patient expresses appears to be a superior quadrantanopia when both eyes are open however peripheral contreras appear intact in superior aspect of R eye on assessment. 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 This defect is not appreciable in the left eye however he has cloudy vision in the left eye at baseline which is chronic and likely limiting full assessment. I suspect this to be a parietal lobe lesion affecting the optic pathway that processes visual information. Differential for this specifically includes, but is not limited to: Stroke in the posterior cerebral artery territory, brain tumor in the parietal lobe, etc. No history of trauma. Labs, chest x-ray, EKG, and head CT as well as CTA brain carotid are ordered. Hyperglycemia without anion gap acidosis. Glucose is greater than 300. Pseudo hyponatremia as it corrects to 138-140 given this. Normocytic anemia. Patient's hemoglobin A1c is greater than 12% representing very poorly controlled diabetes. Called [facility] for survey and mapping technician: Spoke with Dr Titi Porras at 22:28. Hx diabetes = possible vitreous hemorrhage / diabetic retinopathy given diabetes and hypertension. Shouldn't preclude stroke work up which would take precedence. If continues to get worse, vitreous hemorrhage would be more likely in which case would consider transfer. Usually not time critical but would recommend eye doctor see within 24-48 hours if possible. Made appointment for [facility] 2/10/25 pending in-patient work up. [facility], [address]. 2:00pm, phone number [phone]. Spoke with Naseer neurologist who does appear to be on-call today and tomorrow. He states that MRIs are not performed on the weekends and patient should be aware of this. I did speak with radiology technicians who subsequently spoke with data warehouse consultant and confirms that there was a time period where MRIs were not performed on the weekends but they have resumed performing them provided the order is placed for tomorrow at 7:00 a.m. he would be added to their inpatient schedule and it should not be an issue. Spoke with computer numeric control setter hospitalist overnight, Dr Santos. Initially ordered IMU status given TIA/CVA work up however patient otherwise stable, ok for med tele. Differential Diagnosis Differential diagnosis: Likely other (TIA, CVA; considered ocular migraine, posterior vitreous hemorrhage, glaucoma ) Lab Data Attestation: I reviewed the patient's lab results. 11/11/24 20:45 11/11/24 20:45 Labs: Lab Results 11/11/24 Range/Units 20:45 WBC 6.4 (4.5-10.0) K/mm3 RBC 4.30 L (4.6-6.20) M/mm3 Hgb 11.6 L (14.0-18.0) g/dL Hct 35.8 L (42.0-52.0) % MCV 83.3 (80-100) fl MCH 27.0 (26-34) pg MCHC 32.4 (32-36) g/dl RDW 12.7 (11.5-14.5) % Plt Count 216 (150-375) k/mm3 MPV 11.8 H (7.4-10.4) fl Immature Gran % (Auto) 0.3 (0-0.5) % Neut % (Auto) 55.9 (45.5-73.1) % Lymph % (Auto) 25.2 (18.3-44.2) % [place] % (Auto) 7.5 (2.6-8.5) % Eos % (Auto) 10.0 H (0-4.4) % Baso % (Auto) 1.1 (0.2-1.2) % Lymph # (Auto) 1.62 (0.9-3.2) K/mm3 [place] # (Auto) 0.5 (0.1-0.6) K/mm3 Eos # (Auto) 0.6 H (0-0.3) K/mm3 Baso # (Auto) 0.1 (0.0-0.1) K/mm3 Abs Immat Gran (auto) 0.02 (0.00-0.031) K/mm3 Absolute Neuts (auto) 3.6 (1.3-6.7) K/mm3 Absolute Nucleated RBC 0.000 (0.0-0.012) K/mm3 Nucleated RBC % 0.0 (0.0-0.2) % Sodium 135 L (137-145) mmol/L Potassium 4.4 (3.4-5.0) mmol/L Chloride 99 (98-107) mmol/L Carbon Dioxide 24 (22-30) mmol/L Anion Gap 12 (4-12) mmol/L BUN 12 (9-20) mg/dL Creatinine 0.51 L (0.7-1.3) mg/dL Estim Creat Clear Calc 149 ml/min Estimated GFR > 60 (59 - ) Glucose 314 H (65-110) mg/dL Hemoglobin A1c 12.7 H (<5.7) % Calcium 9.2 (8.4-10.2) mg/dL Total Bilirubin 0.4 (0.2-1.3) mg/dL AST 26 (17-59) U/L ALT 24 (6-50) U/L Alkaline Phosphatase 81 (38-126) U/L Troponin I < 0.012 (0.000-0.034) ng/mL Total Protein 7.0 (6.3-8.2) g/dL Albumin 4.1 (3.5-5.1) g/dL Triglycerides 51 (<150) mg/dL Cholesterol 91 (0-200) mg/dL LDL Cholesterol Direct 31 mg/dL HDL Direct 43 mg/dL Imaging Data Radiologist's impression: IMPRESSION: No acute intracranial process. Minimal opacification and aerated secretions in the right posterior ethmoid cells, may reflect a component of acute sinusitis in the appropriate clinical context. No large vessel intracranial occlusion, high-grade intracranial stenosis, or aneurysm. No carotid or vertebral artery occlusion, dissection, or significant stenosis. IMPRESSION: No acute cardiopulmonary process. ECG Data EKG #1: Attestation: I personally reviewed and interpreted this ECG as follows: ECG completion date: 11/11/24 ECG completion time: 20:41 Interpretation: Normal sinus rhythm at a rate of 73 beats per minute. MT interval 133. QRS 103. QT/QTC 361/386. Good R-wave progression across the precordial leads. No T-wave inversions. Discharge Plan Discharge Clinical Impression: Pseudohyponatremia, Normocytic anemia, Hyperglycemia due to diabetes mellitus, Poorly controlled diabetes mellitus, Right homonymous superior quadrantanopia, Cloudy vision Patient Disposition: Still a Patient Condition: Stable
--- OUTSIDE RECORDS SUMMARY | 2024-11-11 19:43 | XMS_ITS | Clinical Summary ---
Author Organization [facility] Address [address] [place] [id number] Care Team Providers Care Joinery Patternmaker Name Role Phone Jane Corona DO Primary Care Provider + Silas Vazquez MD Unavailable Fernandez Moody MD Unavailable [phone] Allergies No known active allergies Medications metFORMIN [...] Tobacco: Never Tobacco Cessation:Counseling Given: Not Answered [facility] Utilities Answer Date Recorded In the past 12 months has [employer], [employer], or water [employer] threatened to shut off services in your [...] any time in the past 12 m [facility], were you homeless or living in a [place] health care facility (including now)? No 05/13/2024 Sex and Gender [...] 5:59 PM 05/15/2024 3:59 PM Care Teams Joinery Patternmaker Relationship Specialty [place] [address] [place] [address] PCP - General FAMILY PRACTICE 05/14/24 Silas Vazquez MD [facility] [address] [place] [address] Referring Physician VASCULAR SURGERY 05/15/24 05/15/25 Fernandez Moody MD [address] [facility] [address] [place] [address] Neuro-Ophthalmology 05/15/24 05/15/25
--- OUTSIDE RECORDS SUMMARY | 2024-11-11 19:43 | XMS_ITS | Continuity of Care Document ---
Author Organization [facility] Address [address] [place] [address] Rd [address] [place] [address] Phone Care Team Providers Care Quarry Plug And Feather Driller Name Role Phone Davion PT,MPT,ATC, Zurdo Unavailable Unavai lable Procedures Procedure Date Free Assessment Advance Directives Directive Yes / No Effective Date File Name No Information Encounters Encounter Description Practice Location Reason(s) For Visit Diagnoses Date Provider Providers Copied on Encounter [facility], [address] [place], [place] [address], [place], [place], [id number], [place] tel:[phone] [place] No Information [address] [place]. Referring Provider: Physician Screen. Family History Family Member Type Diagnosis Age At Onset No Information Payers Payer name Insurance type Covered republican ID Authoriza tion(s) No Information Social History [...]
--- OUTSIDE RECORDS SUMMARY | 2024-11-11 19:43 | XMS_ITS | Clinical Summary ---
Author Organization 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
--- OUTSIDE RECORDS SUMMARY | 2024-11-11 19:43 | XMS_ITS | Continuity of Care Document ---
Author Organization [facility] Address [address] [place] [address] Phone Care Team Providers Care Garden Tractor Mechanic Name Role Phone Cj THOMPSON Jlwai Unavailable [...] Procedure Date DSCHRG MED/CURRENT MED MERGE OFFICE [id number] BASIC METABOLIC PANEL(BMP) HEMOGLOBIN A1C HGA1C, GLYCO LDL-CHOLESTEROL, DIRECT ROUTINE VENIPUNCTURE OFFICE [id number] GENERAL HEALTH PANEL HEMOGLOBIN A1C HGA1C, GLYCO LIPID PANEL MICROALBUMIN, QN (URINE) CREATININE, (U-R) PSA, TOTAL ROUTINE VENIPUNCTURE PREVENTATIVE-EST: 40-64 BASIC METABOLIC PANEL(BMP) HEMOGLOBIN A1C HGA1C, GLYCO LDL-CHOLESTEROL, DIRECT ROUTINE VENIPUNCTURE OFFICE [id number] GENERAL HEALTH PANEL HEMOGLOBIN A1C HGA1C, GLYCO LIPID PANEL MICROALBUMIN, QN (URINE) CREATININE, (U-R) PSA, TOTAL ROUTINE VENIPUNCTURE PREVENTATIVE-EST: 40-64 OFFICE [id number] Pt inelig neg scrn depres OFFICE [id number]-[id number] OFFICE TKRYL-KUE-HSZGSOIS BODY MASS INDEX DOCD SYST BP >= 140 MM HG6 IT DIAST BP 80-89 MM HG Pt inelig neg scrn depres OFFICE [id number]-ZIF-[id number] BODY MASS INDEX DOCD SYST BP >= [...] Diagnoses Date Provider Providers Copied on Encounter [facility], [address], [place], [place], [id number] , tel: [phone] [facility] No Information 4 Cj Lara. [address], [place], [place], [address] , . tel: [phone] [facility] [address], [place], [place], [address] , tel: [phone] [facility] Follow-Up (chief complaint) Body mass index [BMI] 26.0-26.9, adultEssential (primary) hypertensionHospi inna discharge follow-upType 2 diabetes mellitus with hyperglycemia, without long-term current use of insulin 4 Cj Lara. [address], [place], [place], [address] , [place]. tel: [phone] Referring Provider: Danny [address], [place], [address] . tel:[phone] [facility], [address], [place], [place], [address] , tel: [phone] [facility] No Information 4 Cj Lara. [address], [place], [place], [address] , [place]. tel: [phone] OFFICE ERVAA-NJP-BF [facility], [address], [place], [place], [address] , tel: [phone] [facility] DIabetes (chief complaint)ch ronic helath conditions (chief complaint) Body mass index [BMI] 27.0-27.9, adultType 2 diabetes mellitus with hyperglycemia, without long-term current use of insulinMixed hyperlipidemiaEle vated blood pressure reading without diagnosis of hypertension 4 Cj Lara. [address], [place], [place], [address] , [place]. tel: [phone] Referring Provider: Danny [address], [place], [address] . tel:[phone] [facility], [address], [place], [place], [address] , tel: [phone] [facility] No Information 4 Cj Lara. [address], [place], [place], [address] , [place]. tel: [phone] [facility], [address], [place], [place], [address] , [place] tel: [phone] [facility] Mild anemia 4 Cj Lara. [address], [place], [place], [address] , [place]. tel: [phone] PREVENTATIVE -EST: 40-64 [facility], [address], [place], [place], [address] , tel: [phone] [facility] preventive exam (chief complaint)ye rosangela checkup (chief complaint) Body mass index [BMI] 26.0-26.9, adultMixed hyperlipidemiaTyp e 2 diabetes mellitus with hyperglycemia, without long-term current use of insulinProstate cancer screeningEncounte r for general adult medical examination without abnormal findings 4 Cj Lara. [address], [place], [place], [address] , . tel: [phone] Referring Provider: Danny [address], [place], [address] . tel:[phone] [facility], [address], [place], [place], [address] , [place] tel: [phone] [facility] No Information 4 Cj Lara. [address], [place], [place], [address] , [place]. tel: [phone] OFFICE XKNGU-XGC-FP PANDED [facility], [address], [place], [place], [address] , [place] tel: [phone] [facility] Diabetes (chief complaint) Body mass index [BMI] 26.0-26.9, adultType 2 diabetes mellitus with hyperglycemia, without long-term current use of insulinMixed hyperlipidemia 3 Cj Lara. [address], [place], [place], [address] , [place]. tel: [phone] Referring Provider: Danny [address], [place], [address] . tel:[phone] PREVENTATIVE -EST: 40-64 [employer], [address], [place], [place], [address] , [place] tel: [phone] [facility] preventive exam (chief complaint) Body mass index [BMI] 26.0-26.9, adultEncounter for general adult medical examination without abnormal findingsType 2 diabetes mellitus with hyperglycemia, without long-term current use of insulinProstate cancer screening 2 Cj Lara. [address], [place], [place], [address] , [place]. tel: [phone] Referring Provider: Danny [address], [place], [address] . tel:[phone] OFFICE QQZYC-XWX-YD [facility], [address], [place], [place], [address] , [place] tel: [phone] [facility] Follow Up of diabetes (chief complaint) Body mass index [BMI] 23.0-23.9, adultType 2 diabetes mellitus with hyperglycemia, without long-term current use of insulinElevated blood pressure reading without diagnosis of hypertension 2 Cj Lara. [address], [place], [place], [address] , [place]. tel:[phone] Referring Provider: Danny [address], [place], [address] . tel:[phone] OFFICE SPWTX-QPB-MG [facility], [address], [place], [place], [address] , tel: [phone] [facility] No Information 2 Cj Lara. [address], [place], [place], [address] , . tel: [phone] Referring Provider: Danny [address], [place], [address] . tel:[phone] [facility]ICE [facility], [address], [place], [place], [address] , tel: [phone] [facility] Complete Care Chronic Conditions (chief complaint)Er ectile dysfunction (chief complaint) Type 2 diabetes mellitus with hyperglycemia, without long-term current use of insulinElevated blood pressure reading without diagnosis of hypertensionErect ile dysfunction associated with type 2 diabetes mellitusErectile dysfunction due to diseases classified elsewhere 1 Cj Lara. [address], [place], [place], [address] , . tel: [phone] Referring Provider: Danny [address], [place], [address] . tel:[phone] [facility], [address], [place], [place], [address] , tel: [phone] [facility] Complete Care Type 2 diabetes mellitus with hyperglycemia, without long-term current use of insulinElevated blood pressure reading without diagnosis of hypertension 1 Cj Lara. [address], [place], [place], [address] , . tel:[phone] Referring Provider: Danny [address], [place], [address] . tel:[phone] Family History Family Member Type Diagnosis Age At Onset Mother Problem Diabetes mellitus Sister Problem Diabetes mellitus Immunizations Vaccine Date Status Comments Moderna COVID19 Vaccine, 0.5 mL per dose, 2 doses, administered 28 days apart administered Source: Other Provid er Payers Payer name Insurance type Covered green party ID Authoriza tion(s) [facility] CI [id number] Social History Type Description Quantity Date Captured [...] guidance, and counseling completed Referral Referred To: [address], [id number] Ordered: COLONOSCOPY, Flexible, Proximal To Splenic, Diagnostic, Wor W/O Collection Of Sp ordered Future Order: Lab Order Iron ([id number]), Sent on: Sent Future Order: Lab Order Vitamin B12 ([id number]), Sent on: Sent History Of Present Illness [...] denies any chest pain or abdominal pain.Laboratory YmahnghXcE9m was 12.9. preventive exam yearly checkup Patient verbally consents to the [employer] recording experience.HISTORY OF PRESENT ILLNESS:Last Gallo is [...] in 08/2023.This note has been created using [employer] experience and was completed in the EHR [...] with Yeison. Related to Hospital discharge follow-up New diagnosis. To co ntinue with amlodipine. Reviewed adverse side effects of medication. To keep log of blood pressure for 1-2 weeks. Related to Essential (primary) hypertension Fair control. Goal h emoglobin A1C less [...] 26.0-26.9, adult We advised him to ma marino a log for his daily blood pressure at home.This note has been created using Mobile System 7 and was completed in the EHR by Joel Vasquez Pasted by Sandra Garcia Related to Elevated blood [...] general adult medical examination without abnormal findings Dietary management e ducation, guidance, and counseling Related to Body mass index (BMI) 26.0-26.9, adult Giving encouragement to exercise Related to Body mass index (BMI) 26.0-26.9, adult Stable. Goal LDL les s than 70. To limit red meat. Increase fruits and vegetables. Continue with diet and exercise as tolerated. Related to Mixed hyperlipidemia Work on diet and exe rcise. This note has been created using Mobile System 7 and was completed in the EHR by Ashley Murphy. Related to Body mass index [BMI] 26.0-26.9, adult Uncontrolled. Contin ue with current treatment plan [...] ordered. Related to Prost ate cancer screening Fair control. Michelle amador on metformin and glipizide. Due to the diarrhea, may have to adjust the metformin, but we would like to see what A1c is first. Discussed importance of low carbohydrate diet and continue with daily exercise. It is important to have yearly eye exams, to check his feet on a regular basis.This note has been created using [employer] experience and was completed in the EHR by Soraya Diaz. Related to Type 2 diabetes mellitus with hyperglycemia, without long-term current use of insulin He is up-to-date on preventive measures. He is going to get non-fasting labs completed today. He will follow-up in 6 months if the A1c is well controlled, 3 months with the A1c is not well controlled. Related to Encounter for general adult medical examination without abnormal findings Dietary management e ducation, guidance, and counseling [...] check testosteron e and thyroid function at [facility]. Further recommendations pending lab results. Related to [...]
--- OUTSIDE RECORDS SUMMARY | 2024-11-11 19:43 | XMS_ITS | Referral Summary ---
Author Organization [facility] Address [address] [place] [address] Care Team Providers Care Research Food Technologist Name Role Phone Unavailable Primary Care Provider Unavailabl e Source Comments [facility],non-owned Affiliates and Associated Physician Practices is amultiple site organization consisting of ambulatory clinics and hospital sitesin [place], [place], [place] and [place]. This disclosure is being madepursuant to the Care Everywhere program and may not contain all information available regarding this patient. Last updated 18.[facility] Allergies No known active allergies Medications * [...]
--- OUTSIDE RECORDS SUMMARY | 2024-11-11 19:44 | XMS_ITS | Patient Health Summary ---
Author Organization [facility] Address [address] [place] [address] Care Team Providers Care Media Assistant Name Role Phone Unavailable Primary Care Provider Unavailabl e Note from [facility],non-owned Affiliates and Associated Physician Practices is amultiple site organization consisting of ambulatory clinics and hospital sitesin [place], [place], [place] and [place]. This disclosure is being madepursuant to the Care Everywhere program and may not contain all information available regarding this patient. Last updated 18.[facility] Allergies No known active allergies Medications * [...]
--- OUTSIDE RECORDS SUMMARY | 2024-11-11 19:44 | XMS_ITS | Clinical Summary ---
Author Organization [facility] Address [address] [place] [address] Care Team Providers Care Lithographic Proofer Apprentice Name Role Phone Unavailable Primary Care Provider Unavailabl e Source Comments [facility],non-owned Affiliates and Associated Physician Practices is amultiple site organization consisting of ambulatory clinics and hospital sitesin [place], [place], [place] and [place]. This disclosure is being madepursuant to the Care Everywhere program and may not contain all information available regarding this patient. Last updated 18.[employer] Allergies No known active allergies Medications * [...]
--- NOTE | 2024-11-11 20:26 | ECG_ITS ---
Test Date: 2024-11-11 20:41:37 Measurements Intervals [place] Rate: 73 P: 64 W[place]: 133 QRS: 8 QRSD: 103 T: 58 QT: 361 QTc: 398 Interpretive Statements SINUS RHYTHM CANNOT R/O SEPTAL INFARCT, AGE INDETERMINATE ABNORMAL ECG No previous ECG available for comparison Electronically Signed On 11-12-2024 07:46:43 FUSION ANALYST by Jose Alvarado D.O.
[2024-11-11 20:51] LABS: Basophils Absolute Auto 0.1 K/mm3 (0.0-0.1); Basophils Percent Auto 1.1 % (0.2-1.2); Eosinophils Absolute Auto 0.6 K/mm3 (0-0.3); Hematocrit 35.8 % (42.0-52.0); Hemoglobin 11.6 g/dL (14.0-18.0); Immature Granulocyte Absolute 0.02 K/mm3 (0.00-0.031); Immature Granulocyte Percent A 0.3 % (0-0.5); Lymphocytes Absolute Auto 1.62 K/mm3 (0.9-3.2); Lymphocytes Percent Auto 25.2 % (18.3-44.2); Mean Corpuscular HGB Conc 32.4 g/dl (32-36); Mean Corpuscular Volume 83.3 fl (80-100); Mean Platelet Volume 11.8 fl (7.4-10.4); Monocytes Absolute Auto 0.5 K/mm3 (0.1-0.6); Monocytes Percent Auto 7.5 % (2.6-8.5); Neutrophils Absolute Auto 3.6 K/mm3 (1.3-6.7); Neutrophils Percent Auto 55.9 % (45.5-73.1); Platelet Count Result 216 k/mm3 (150-375); Red Cell Distribution Width 12.7 % (11.5-14.5); White Blood Count 6.4 K/mm3 (4.5-10.0)
[2024-11-11 21:06] LABS: Alanine Aminotransferase 24 U/L (6-50); Albumin Level 4.1 g/dL (3.5-5.1); Alkaline Phosphatase 81 U/L (38-126); Anion Gap 12 mmol/L (4-12); Aspartate Amino Transferase 26 U/L (17-59); Bilirubin,Total 0.4 mg/dL (0.2-1.3); Blood Urea Nitrogen 12 mg/dL (9-20); Calcium 9.2 mg/dL (8.4-10.2); Carbon Dioxide 24 mmol/L (22-30); Chloride 99 mmol/L (98-107); Estimated CRCL calculation 149 ml/min; Estimated Glomerular Filt Rate > 60; Glucose 314 mg/dL (65-110); Potassium 4.4 mmol/L (3.4-5.0); Sodium 135 mmol/L (137-145)
[2024-11-11 21:17] LABS: Troponin I < 0.012 ng/mL (0.000-0.034)
[2024-11-11 21:19] LABS: Cholesterol 91 mg/dL (0-200); HDL Direct 43 mg/dL; Triglycerides 51 mg/dL (<150)
[2024-11-11 21:26] LABS: Hemoglobin A1C 12.7 % (<5.7); LDL Cholesterol Direct 31 mg/dL
[2024-11-11] MEDS: SODIUM CHLORIDE 0.9% IV 1,000 ML 999 ML IV CONT (21:38)
[2024-11-11 22:56] VITALS: BP 148/92; PULSE 74; RESP 20; O2SAT 100
[2024-11-12] VITALS (7 sets, daily range): BP systolic 118–155; BP diastolic 75–101; PULSE 71–91; RESP 16–20; TEMP 36.4; O2SAT 98–100; BMI 28.5
[2024-11-12] MEDS: ASPIRIN 81 MG CHEWABLE TABLET 324 MG PO (00:41)
--- NOTE | 2024-11-12 01:04 | PC.NURSE ---
Patient states he does not have an advance directive, but wishes for Monique and/or Bear Cleo to make decisions on his behalf in the event that he is unable to make decisions for himself.
--- NOTE | 2024-11-12 01:41 | PM.IMHP ---
H&P: HPI History of Present Illness Date/Time: 11/12/24 01:41 Chief Complaint: Blurry vision Narrative: 54-year-old male with a history of hypertension, bou-kuilfyw-uougxayyk diabetes mellitus. He presents to [facility] with blurry vision in the left upper quadrant of the right eye. He has had blurry vision in his left eye for 2 weeks, can only see light. He bought reading glasses which helped somewhat. He has never had previous eye problems. No trauma recently. He does not use illicit drugs, tobacco, alcohol. He has not seen his PCP since May 2024. He has not seen flashes or floaters or double vision. No pain or syncope. He confirms the history reported by ER physician except denying that there is no redness to the cloudy vision in his left upper quadrant of the right eye. Not entirely sure if he is taking glipizide and metformin however he reports taking amlodipine and chlorthalidone. Blood sugars at home are usually elevated, blood pressure at home is usually about 110/80. In the ER he received 1 L normal saline bolus and aspirin 324 mg p.o. x1. Vitals stable. HbA1c 12.7, lipid panel obtained. Chest x-ray without acute abnormalities. CTA head and neck demonstrates no acute intracranial process, no carotid or vertebral artery occlusion/stenosis. Review of Systems Review of Systems: All systems reviewed & are unremarkable except as noted in HPI and below (HPI) [facility] Family History Family History (Updated 11/12/24 @ 01:13 by Sydnee Burrell RN) Other Unknown family medical history Social History Social History (Updated 11/11/24 @ 20:51 by Usha Bello MD) Smoking status: Never smoker Do You Feel Safe in your Home?: Yes Lack of Transportation: No Lack of Food: Never True Current Housing: I Have Housing Concerned About Future Housing: No Difficulty Paying Gas/Electric Bills: No Difficulty Paying for Meds: No Currently Unemployed: No Education: Associate Degree Difficulty w/ Childcare or Family Care: No Occupation/Education: occupation Additional occupation/education comments: Works as a fitter mechanic Spiritual care concerns: No Meds Home Medications and Allergies Home Medications ?Medication ?Instructions ?Recorded ?Confirmed ?Type amlodipine 5 mg tablet 5 mg PO DAILY@0800 11/12/24 11/12/24 History atorvastatin 80 mg tablet 80 mg PO QAM 11/12/24 11/12/24 History chlorthalidone 25 mg tablet 25 mg PO DAILY 11/12/24 11/12/24 History glipizide 10 mg tablet 10 mg PO QAM 11/12/24 11/12/24 History metformin 1,000 mg tablet 1,000 mg PO QAM 11/12/24 11/12/24 History Allergies Allergy/AdvReac Type Severity Reaction Status Date / Time No Known Allergies Allergy Mild Verified 11/12/24 01:18 Vital Signs Vital Signs - 24 hr 11/11/24 19:08 11/11/24 22:56 Temperature 97.6 F Pulse Rate 80 74 Respiratory Rate 20 20 Blood Pressure 168/11 H 148/92 H Pulse Oximetry 100 100 Exam Const: General: comfortable and no acute distress HENMT: Mouth: Yes moist mucous membranes Eyes: General: appearance normal, both eyes and all related structures Sclera: sclerae normal Pupils: Equal, round and reactive pupils present EOM: EOMs intact bilaterally Other: Left eye all contreras without discernible vision except for light. Right eye visual contreras intact. Resp: Effort & Inspection: normal respiratory effort Auscultation: clear to auscultation bilaterally Cardio: Rate: regular rate Rhythm: regular rhythm GI: GI Palp: Yes Soft to palpation Neuro: General: deep tendon reflexes 2+ bilaterally Speech: normal speech Motor exam (neuro): 5/5 motor strength present throughout Sensory Exam: normal sensation Extrem: General: no edema H&P: Results Labs Labs: Short CBC 11/11/24 Range/Units 20:45 WBC 6.4 (4.5-10.0) K/mm3 Hgb 11.6 L (14.0-18.0) g/dL Hct 35.8 L (42.0-52.0) % Plt Count 216 (150-375) k/mm3 BMP 11/11/24 20:45 Sodium 135 L Potassium 4.4 Chloride 99 Carbon Dioxide 24 BUN 12 Creatinine 0.51 L Glucose 314 H Calcium 9.2 Cardiac Enzymes 11/11/24 Range/Units 20:45 Troponin I < 0.012 (0.000-0.034) ng/mL Liver Function 11/11/24 Range/Units 20:45 Total Bilirubin 0.4 (0.2-1.3) mg/dL AST 26 (17-59) U/L ALT 24 (6-50) U/L Alkaline Phosphatase 81 (38-126) U/L Albumin 4.1 (3.5-5.1) g/dL Assessment and Plan Assessment and plan (1) Cloudy vision: Code(s): H53.8 - Other visual disturbances Status: Acute (2) Hyperglycemia due to diabetes mellitus: Code(s): E11.65 - Type 2 diabetes mellitus with hyperglycemia Status: Acute (3) Poorly controlled diabetes mellitus: Code(s): E11.65 - Type 2 diabetes mellitus with hyperglycemia Status: Acute (4) Chronic hypertension: Code(s): I10 - Essential (primary) hypertension Status: Acute Plan 54-year-old male with a history of hypertension, goj-xnqfupt-ofckdwtis diabetes mellitus. He presents to [place] [facility] with blurry vision in the left upper quadrant of the right eye. He has had blurry vision in his left eye for 2 weeks, can only see light. He bought reading glasses which helped somewhat. He has never had previous eye problems. Denies dizziness or imbalance. No trauma recently. He does not use illicit drugs, tobacco, alcohol. He has not seen his PCP since May 2024. He has not seen flashes or floaters or double vision. No pain or syncope. He confirms the history reported by ER physician except denying that there is no redness to the cloudy vision in his left upper quadrant of the right eye. Not entirely sure if he is taking glipizide and metformin however he reports taking amlodipine and chlorthalidone. Blood sugars at home are usually elevated, blood pressure at home is usually about 110/80. In the ER he received 1 L normal saline bolus and aspirin 324 mg p.o. x1. Vitals stable. HbA1c 12.7, lipid panel obtained. Chest x-ray without acute abnormalities. CTA head and neck demonstrates no acute intracranial process, no carotid or vertebral artery occlusion/stenosis. 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 ER physician spoke with [facility] rifle case repairer Dr. Walls. Advised to obtain MRI and Neurology consultation. Recommend ophthalmology consultation within 24-48 hours if possible. Appointment was made for the patient for Wednesday11/13/2024 at [facility] for specialist medicine. Neurology consulted from ER. MRI placed for 11/12/2024. Admit to medical floor telemetry. Neuro checks and fall precautions. Start aspirin 81 mg p.o. q.day. and Plavix 75 mg p.o. q.day. continue INCOME TAX ANALYST atorvastatin 80 mg p.o. q.a.m.. Resume INCOME TAX ANALYST amlodipine and chlorthalidone. Patient reports he was taking his glipizide and metformin, it does not appear these refilled since early 2023. Reiterated to him the importance of stroke prevention. Start metformin 1000 mg p.o. q.a.m. and glipizide 10 mg p.o. q.a.m.. Follow blood sugars with Accu-Cheks a.c. HS. And adjust as necessary in preparation for discharge. ----- SCDs Patient wishes to be full code Hospitalist MIPS Advance Care Plan I have confirmed that the patient's Advanced Care Plan is present, code status is documented, or surrogate decision maker is listed in patient medical record.: Yes Medication Reconciliation I have utilized all available resources to obtain, update and review the patients current medications (includes all prescriptions, OTC, herbals, cannabis, and nutritional supplements).: Yes
[2024-11-12] MEDS: amLODIPine BESYLATE 5 MG TABLET PO (02:29)
[2024-11-12] MEDS: CLOPIDOGREL BISULFATE 75 MG TABLET PO (02:29)
--- NOTE | 2024-11-12 03:11 | ADMGEN ---
This patient, Yeison Gallo, was admitted to [facility] Surg Room 328-01. Patient/family oriented to hospital policies and general routines including ID bracelet, bed and alarms, visiting hours, pain management, procedures, bathroom and other care routines, personal items, smoking policy, room service/diet, and visiting hours. Information on how to activate the Rapid Response Team has been discussed. Patient/Family are encouraged to report perceived risks to care and to ask questions if they do not understand what they are told or what they should do.
[2024-11-12 08:18] LABS: Glucose Point of Care 164 mg/dl (65-105)
[2024-11-12] MEDS: ASPIRIN 81 MG ENTERIC TABLET PO (08:40)
[2024-11-12] MEDS: metFORMIN HCL 500 MG TABLET 1000 MG PO (08:40)
[2024-11-12] MEDS: ATORVASTATIN 40 MG TABLET 80 MG PO (08:40)
[2024-11-12] MEDS: glipiZIDE 5 MG TABLET 10 MG PO (08:40)
--- NOTE | 2024-11-12 10:43 | PM.IMPN ---
Progress Note: A&P Assessment and Plan (1) Cloudy vision: Code(s): H53.8 - Other visual disturbances Status: Acute (2) Hyperglycemia due to diabetes mellitus: Code(s): E11.65 - Type 2 diabetes mellitus with hyperglycemia Status: Acute (3) Poorly controlled diabetes mellitus: Code(s): E11.65 - Type 2 diabetes mellitus with hyperglycemia Status: Acute (4) Chronic hypertension: Code(s): I10 - Essential (primary) hypertension Status: Acute Plan left eye visual changes retina detachment per MRI Transfer to [facility] called and awaiting call back Continue Aspirin and Lipitor meanwhile continue supportive care neurology consulted HTN with elevated blood pressure SBP 154 Contineu Amlodipine and started on HCTZ monitor Dm2 Continue SSi with accucheks DVT prophylaxis on Sq Lovenox Subjective Date/time seen: 11/12/24 10:43 Interval history: Comfortable at bedside, still complains of left eye distorted vision MRI showed left retinal detachment Calling [facility] for stat transfer Review of Systems Review of Systems: All systems reviewed & are unremarkable except as noted in HPI and below (HPI) Exam Const: General: comfortable and no acute distress HENMT: Mouth: Yes moist mucous membranes Eyes: General: appearance normal, both eyes and all related structures Sclera: sclerae normal Pupils: Equal, round and reactive pupils present EOM: EOMs intact bilaterally Other: Left eye all contreras without discernible vision except for light. Right eye visual contreras intact. Resp: Effort & Inspection: normal respiratory effort Auscultation: clear to auscultation bilaterally Cardio: Rate: regular rate Rhythm: regular rhythm Neuro: General: deep tendon reflexes 2+ bilaterally Cranial nerves: Yes Equal, round and reactive pupils present Speech: normal speech Motor exam (neuro): 5/5 motor strength present throughout Sensory Exam: normal sensation Extrem: General: no edema Objective Data Vital Signs Vital Signs: Vital Signs - 24 hr 11/11/24 19:08 11/11/24 22:56 11/12/24 02:15 Temperature 97.6 F Pulse Rate 80 74 Respiratory Rate 20 20 Blood Pressure 168/11 H 148/92 H 155/101 H Pulse Oximetry 100 100 Oxygen Delivery 11/12/24 03:10 11/12/24 03:17 11/12/24 04:00 Temperature Pulse Rate 71 74 82 Respiratory Rate 16 20 Blood Pressure 154/94 H Pulse Oximetry 100 100 Oxygen Delivery Room Air 11/12/24 08:00 Temperature Pulse Rate Respiratory Rate Blood Pressure Pulse Oximetry Oxygen Delivery Room Air Intake/Output Intake/Output: Intake & Output 11/09/24 11/10/24 11/11/24 11/12/24 23:59 23:59 23:59 23:59 Intake Total 1000 550 Balance 1000 550 Meds/Results Medications: Active Medications Generic Name Dose Route Start Last Admin Trade Name Freq PRN Reason Stop Dose Admin Acetaminophen 650 mg 11/12/24 00:14 Acetaminophen 325 Mg Tablet PO Q4H PRN Mild Pain (1-3) or Fever Amlodipine Besylate 5 mg 11/13/24 08:00 Amlodipine Besylate 5 Mg Tablet PO DAILY@0800 COUNTS INCLUDE 234 BEDS AT THE [facility] Aspirin 81 mg 11/12/24 09:00 11/12/24 08:40 Aspirin 81 Mg Enteric Tablet PO 81 mg QAM COUNTS INCLUDE 234 BEDS AT THE [facility] Administration Atorvastatin Calcium 80 mg 11/12/24 09:00 11/12/24 08:40 Atorvastatin 40 Mg Tablet PO 80 mg QAM COUNTS INCLUDE 234 BEDS AT THE [facility] Administration Chlorthalidone 25 mg 11/12/24 09:00 Chlorthalidone 25 Mg Tablet PO DAILY COUNTS INCLUDE 234 BEDS AT THE [facility] Clopidogrel Bisulfate 75 mg 11/12/24 02:00 11/12/24 02:29 Clopidogrel Bisulfate 75 Mg Tablet PO 75 mg QAM COUNTS INCLUDE 234 BEDS AT THE [facility] Administration Dextrose 12.5 gm 11/12/24 00:14 Dextrose 50% 25 Gm/50 Ml Syringe IV PUSH PRN PRN Hypoglycemia Protocol Glipizide 10 mg 11/12/24 08:00 11/12/24 08:40 Glipizide 5 Mg Tablet PO 10 mg DAILY@0800 COUNTS INCLUDE 234 BEDS AT THE [facility] Administration Glucagon 1 mg 11/12/24 00:14 Glucagon For Inj 1 Mg Vial IM PRN PRN Hypoglycemia Protocol Glucose 15 gm 11/12/24 00:14 Glucose Oral Gel 15 Gm Of Glucse In 37.5 Gm Tube PO PRN PRN Hypoglycemia Protocol Dextrose 1,000 mls @ 100 mls/hr 11/12/24 00:14 Dextrose 5% 1,000 Ml IVPB PRN PRN Hypoglycemia Protocol Insulin Aspart 2 - 5 units 11/12/24 08:00 11/12/24 08:25 Insulin Aspart (*Bkc) 100 Units/Ml SUB-Q Not Given TIDWM COUNTS INCLUDE 234 BEDS AT THE [facility] Protocol Insulin Aspart 1 - 2 units 11/12/24 21:00 Insulin Aspart (*Bkc) 100 Units/Ml SUB-Q HS COUNTS INCLUDE 234 BEDS AT THE [facility] Protocol Metformin HCl 1,000 mg 11/12/24 08:00 11/12/24 08:40 Metformin Hcl 500 Mg Tablet PO 1,000 mg DAILY@0800 COUNTS INCLUDE 234 BEDS AT THE [facility] Administration Ondansetron HCl 4 mg 11/12/24 00:14 Ondansetron Inj 4 Mg/2 Ml Vial IV PUSH Q4H PRN Nausea Perflutren Lipid Microsphere 0 ml 11/12/24 00:17 Perflutren Lipid Microspheres 1.5 Ml Vial Diluted To 10 Ml Total Volume IV PUSH 11/15/24 00:18 ONCE PRN adequate visualization Protocol Radiology Results: ITS Impressions Chest X-Ray 11/11/24 20:51 IMPRESSION: No acute cardiopulmonary process. Head/Neck CTA 11/11/24 21:41 IMPRESSION: No acute intracranial process. Minimal opacification and aerated secretions in the right posterior ethmoid cells, may reflect a component of acute sinusitis in the appropriate clinical context. No large vessel intracranial occlusion, high-grade intracranial stenosis, or aneurysm. No carotid or vertebral artery occlusion, dissection, or significant stenosis. Brain MRI 11/12/24 08:50 IMPRESSION: 1. Normal brain. 2. Abnormal signal in the left lobe with configuration suggesting retinal detachment. Labs Labs: Laboratory Results - last 24 hr 11/11/24 11/12/24 20:45 08:15 WBC 6.4 RBC 4.30 L Hgb 11.6 L Hct 35.8 L MCV 83.3 MCH 27.0 MCHC 32.4 RDW 12.7 Plt Count 216 MPV 11.8 H Immature Gran % (Auto) 0.3 Neut % (Auto) 55.9 Lymph % (Auto) 25.2 [place] % (Auto) 7.5 Eos % (Auto) 10.0 H Baso % (Auto) 1.1 Lymph # (Auto) 1.62 [place] # (Auto) 0.5 Eos # (Auto) 0.6 H Baso # (Auto) 0.1 Abs Immat Gran (auto) 0.02 Absolute Neuts (auto) 3.6 Absolute Nucleated RBC 0.000 Nucleated RBC % 0.0 Sodium 135 L Potassium 4.4 Chloride 99 Carbon Dioxide 24 Anion Gap 12 BUN 12 Creatinine 0.51 L Estim Creat Clear Calc 149 Estimated GFR > 60 Glucose 314 H POC Capillary Glucose 164 H Hemoglobin A1c 12.7 H Calcium 9.2 Total Bilirubin 0.4 AST 26 ALT 24 Alkaline Phosphatase 81 Troponin I < 0.012 Total Protein 7.0 Albumin 4.1 Triglycerides 51 Cholesterol 91 LDL Cholesterol Direct 31 HDL Direct 43
[2024-11-12] MEDS: CHLORTHALIDONE 25 MG TABLET PO (11:56)
[2024-11-12] MEDS: hydroCHLOROthiazide 12.5 MG CAPSULE PO (11:56)
[2024-11-12 12:03] LABS: Glucose Point of Care 144 mg/dl (65-105)
--- NOTE | 2024-11-12 13:16 | P.CONNEU_ITS ---
Assessment and Plan Assessment and plan (1) Chronic hypertension: Code(s): I10 - Essential (primary) hypertension Status: Acute (2) Poorly controlled diabetes mellitus: Code(s): E11.65 - Type 2 diabetes mellitus with hyperglycemia Status: Acute (3) Retinal hemorrhage: Code(s): H35.60 - Retinal hemorrhage, unspecified eye Status: Acute Plan 1. Diabetes mellitus 2. Hypertension 3. Hypercholesterolemia 4. Visual deficit with documented abnormal MRI involving the left eye raising the possibility of retinal detachment 5. Uncontrolled diabetes mellitus with neuropathy. Patient was advised to have a follow-up with the skill labor, to have a good control of diabetes mellitus and hypertension as he has not been seen the regular physicians. Proper referral can be made. Consult date: 11/12/24 HPI: Yeison Gallo is a 54 year old male admitted to the hospital through the emergency room for the complaints of redness in his left upper quadrant of vision on the right side of 2hours duration in addition to the history of cloudy vision in his left eye and also history of purchasing 1.5 corrective reader is but never seen the skill labor . Medication at the time of admission to the ER included amlodipine 5mg daily, atorvastatin 80mg daily, chlorthalidone 25mg daily, glipizide 10mg daily, and metformin 1000mg daily. he is a never smoker. On initial evaluation in the emergency room he was hypertensive blood pressure 154/94 but afebrile routine lab studies were with glucose of 314, hemoglobin A1c of 12.7, on exam he was found to have no gross neurological deficit. His chest x-ray was negative, his CTA was also normal particularly with no evidence of aneurysm, no evidence of anterior or posterior circulation involvement , MRI of the brain did not show any stroke except the abnormal signal in the left lobe with configurations suggesting the retinal detachment.. Review of Systems 2 Review of Systems: All systems reviewed & are unremarkable except as noted in HPI and below PMFSH Family History Family History Sibling No problems noted. 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 Spiritual care concerns: No Meds Home Medications and Allergies Home Medications ?Medication ?Instructions ?Recorded ?Confirmed ?Type amlodipine 5 mg tablet 5 mg PO DAILY@0800 11/12/24 11/12/24 History atorvastatin 80 mg tablet 80 mg PO [facility] 11/12/24 11/12/24 History chlorthalidone 25 mg tablet 25 mg PO DAILY 11/12/24 11/12/24 History glipizide 10 mg tablet 10 mg PO [facility] 11/12/24 11/12/24 History metformin 1,000 mg tablet 1,000 mg PO [facility] 11/12/24 11/12/24 History Allergies Allergy/AdvReac Type Severity Reaction Status Date / Time No Known Allergies Allergy Mild Verified 11/12/24 01:18 Vital Signs Vital Signs - 24 hr 11/11/24 19:08 11/11/24 22:56 11/12/24 02:15 Temperature 36.4 C Pulse Rate 80 74 Respiratory Rate 20 20 Blood Pressure 168/11 H 148/92 H 155/101 H Pulse Oximetry 100 100 Oxygen Delivery 11/12/24 03:10 11/12/24 03:17 11/12/24 04:00 Temperature Pulse Rate 71 74 82 Respiratory Rate 16 20 Blood Pressure 154/94 H Pulse Oximetry 100 100 Oxygen Delivery Room Air 11/12/24 08:00 11/12/24 08:32 11/12/24 10:53 Temperature 36.4 C Pulse Rate 86 81 Respiratory Rate 16 Blood Pressure 118/75 Pulse Oximetry 98 Oxygen Delivery Room Air 11/12/24 12:02 Temperature Pulse Rate 91 Respiratory Rate Blood Pressure Pulse Oximetry Oxygen Delivery Exam 2 Narrative: Exam today revealed him to be awake alert cooperative in no obvious acute distress, his girlfriend happened to be in the room. His speech was not dysphasic not dysarthric not dysphonic. Head was normocephalic with no cranial bruit, ear nose throat examination was normal neck was supple with no cervical bruit no thyromegaly no lymphadenopathy, heart was regular with no murmur, lungs were clear to auscultation, abdomen was soft with no organomegaly, neurologically was awake alert oriented x3, his speech was not dysphasic not dysarthric not dysphonic, pupils were round regular feels the vision were unreliable but he did follow the movements in all 4 quadrants extraocular movements full with no nystagmus facial sensation intact face symmetrical tongue midline the midline with no fasciculation of the tongue motor examination revealed him to have normal strength and tone reflexes symmetrical but sluggish at the ankles plantars are downgoing there is no evidence of gross cerebellar deficit on odwafj-of-ldbz-to-finger. Results Labs 11/11/24 20:45 11/11/24 20:45 Labs: Short CBC 11/11/24 Range/Units 20:45 WBC 6.4 (4.5-10.0) K/mm3 Hgb 11.6 L (14.0-18.0) g/dL Hct 35.8 L (42.0-52.0) % Plt Count 216 (150-375) k/mm3 BMP 11/11/24 20:45 Sodium 135 L Potassium 4.4 Chloride 99 Carbon Dioxide 24 BUN 12 Creatinine 0.51 L Glucose 314 H Calcium 9.2 Cardiac Enzymes 11/11/24 Range/Units 20:45 Troponin I < 0.012 (0.000-0.034) ng/mL Liver Function 11/11/24 Range/Units 20:45 Total Bilirubin 0.4 (0.2-1.3) mg/dL AST 26 (17-59) U/L ALT 24 (6-50) U/L Alkaline Phosphatase 81 (38-126) U/L Albumin 4.1 (3.5-5.1) g/dL
--- NOTE | 2024-11-12 14:30 | PM.DS ---
DS: Admitting Diagnosis Discharge Date 11/12/24 Admitting Diagnosis Left eye Blurry/distorted vision and DS: Discharge Diagnosis Discharge Diagnosis (1) Retinal detachment: Code(s): H33.20 - Serous retinal detachment, unspecified eye Status: Acute DS: Summary Hospital Course Hospital Course: 54-year-old male with a history of hypertension, alt-[id number]-[id number] diabetes mellitus. He presents to [place] [facility] with blurry vision in the left upper quadrant of the right eye. He has had blurry vision in his left eye for 2 weeks, can only see light. He bought reading glasses which helped somewhat. He has never had previous eye problems. No trauma recently. He does not use illicit drugs, tobacco, alcohol. He has not seen his PCP since May 2024. He has not seen flashes or floaters or double vision. No pain or syncope. He confirms the history reported by ER physician except denying that there is no redness to the cloudy vision in his left upper quadrant of the right eye. Not entirely sure if he is taking glipizide and metformin however he reports taking amlodipine and chlorthalidone. Blood sugars at home are usually elevated, blood pressure at home is usually about 110/80. In the ER he received 1 L normal saline bolus and aspirin 324 mg p.o. x1. Vitals stable. HbA1c 12.7, lipid panel obtained. Chest x-ray without acute abnormalities. CTA head and neck demonstrates no acute intracranial process, no carotid or vertebral artery occlusion/stenosis. MRi today showed no acute stroke but showed left retina detachment. I discussed with Dr Mao who agreed that symptoms are related to the retina detachment and thus he was okay with patient proceeding to [facility] for ophthalmology eval and not have to wait for ECHO. I called [facility] ophthalmology and they recommended for patient to discharge and present to [facility] ER as waiting on inpatient trasnfer will delay ophthalmology exam and patient needs urgent. Discussed with patient and he agreed with proceeding from here to [facility] ER for urgent ophthalmology evaluation Discussed with patient for better blood pressre and blood sugar ocntrol he will continue follow up with PCP in 3-5 days And follow recommendations per ophthalmology at [facility] Time Spent with Patient Time attestation: Total time spent providing and/or coordinating discharge services: DS: Data Data Completed and Pending Labs on day of discharge: Labs from last 24 hours 02/06/2811/12/24 11/11/24 11:47 08:15 20:45 WBC 6.4 RBC 4.30 L Hgb 11.6 L Hct 35.8 L MCV 83.3 MCH 27.0 MCHC 32.4 RDW 12.7 Plt Count 216 MPV 11.8 H Immature Gran % (Auto) 0.3 Neut % (Auto) 55.9 Lymph % (Auto) 25.2 Rhea % (Auto) 7.5 Eos % (Auto) 10.0 H Baso % (Auto) 1.1 Lymph # (Auto) 1.62 Rhea # (Auto) 0.5 Eos # (Auto) 0.6 H Baso # (Auto) 0.1 Abs Immat Gran (auto) 0.02 Absolute Neuts (auto) 3.6 Absolute Nucleated RBC 0.000 Nucleated RBC % 0.0 Sodium 135 L Potassium 4.4 Chloride 99 Carbon Dioxide 24 Anion Gap 12 BUN 12 Creatinine 0.51 L Estim Creat Clear Calc 149 Estimated GFR > 60 Glucose 314 H POC Capillary Glucose 144 H 164 H Hemoglobin A1c 12.7 H Calcium 9.2 Total Bilirubin 0.4 AST 26 ALT 24 Alkaline Phosphatase 81 Troponin I < 0.012 Total Protein 7.0 Albumin 4.1 Triglycerides 51 Cholesterol 91 LDL Cholesterol Direct 31 HDL Direct 43 Discharge Plan Discharge Attending physician on discharge: Adelso Birch Consulting providers: Sapna Parra; Haroldo Mao Discharging Clinician: Adelso Birch Anticipated Discharge Date/Time: 11/12/24 14:24 Patient Disposition: Home, Self-Care Activity: as tolerated Diet: diabetic Discharge Instructions: patient will go to [facility] ER as recommended by [facility] Ophthalmology for urgent opthalmology eval Patient Instructions: Antibiotic Form, Pain Management (DC), Ischemic Stroke (DC) Patient Language: Argentine Stand Alone Forms: General Discharge Information Follow-up/Referrals: PHYSICIAN,[employer]ACH[employer]PERATOR [Primary Care Provider] - (F/u with PCP in 3-5 days ) Discharge Medications: Continued amlodipine 5 mg tablet 5 mg PO DAILY@0800 atorvastatin 80 mg tablet 80 mg PO QAM chlorthalidone 25 mg tablet 25 mg PO DAILY metformin 1,000 mg tablet 1,000 mg PO QAM Patient Comments: with meal glipizide 10 mg tablet 10 mg PO QAM Rx Instructions: with meal Date of admission: 11/12/24 00:14 Primary Care Provider: PHYSICIAN,[employer] MACHINE OPERATOR Admitting Provider: Migdalia Glez Attending physician on admission: Migdalia Glez Condition: Stable
== END 2024-11-12 15:10 | disposition home or self-care (01) ==
LOC: ANHED 19:42 → ANHIMU 11-12 00:50 → ANH3MEDSUR 11-12 01:59
PROVIDERS: Admitting Provider General Practice; Emergency Provider Student in an Organized Health Care Education/Training Program; Visit Provider Internal Medicine
DX: H33.22 Serous retinal detachment, left eye (principal); H53.461 Homonymous bilateral field defects, right side; E11.65 Type 2 diabetes mellitus with hyperglycemia; D64.9 Anemia, unspecified; I10 Essential (primary) hypertension; E78.00 Pure hypercholesterolemia, unspecified; Z79.84 Long term (current) use of oral hypoglycemic drugs; Z79.899 Other long term (current) drug therapy
CPT/HCPCS: 36415; 70496; 70498; 70553; 71045; 80053; 80061; 82948; 83036; 84484; 85025; 93005; 96361; 96374; 96375; 99285; A9270; A9577; G0378; J7030; Q9967